=== PATIENT | male | born 1975 | race Caucasian/White ===

== ENCOUNTER 2024-03-15 04:14 | Emergency (ER) | payer BC, MEDICAID ==
[~2024-03-15] VITALS: Ht 177.8 cm; Wt 85.0 kg
[2024-03-15 04:16] VITALS: TEMP 98.6
[2024-03-15 04:45] VITALS: PULSE 110; RESP 16; O2SAT 91
[2024-03-15] MEDS: ALBUTEROL (0.083%) 2.5MG/3ML NEB HHN STA (04:45)
[2024-03-15] MEDS: IPRATROPIUM BROMIDE (0.02%) 0.5MG/2.5ML NEB HHN STA (04:45)
[2024-03-15 04:54] LABS: BG BASE EXCESS -2.8 mmol/L (-2.0-2.0); BG CARBOXYHEMOGLOBIN 1.1 % (0.5-1.5); BG HCO3 ACT 20.8 mmol/L (22.0-26.0); BG OXYGEN SATURATION 92.9 % (92.0-98.5); BG OXYHEMOGLOBIN 91.9 % (94.0-97.0); BG PH 7.417 (7.350-7.450); BG PO2 65.3 mmHg (75.0-100.0); BG SAMPLE SITE RIGHT RADIAL; BG TOTAL HEMOGLOBIN 14.9 g/dL (12.0-18.0); BG VENT MODE ROOM AIR
[2024-03-15 05:43] LABS: CHLORIDE 104 mEq/L (98-107); POTASSIUM 3.2 mEq/L (3.5-5.1); SODIUM 138 mEq/L (136-145)
[2024-03-15 05:44] LABS: CARBON DIOXIDE 25 mEq/L (21-32)
[2024-03-15 05:45] LABS: CALCIUM 9.4 mg/dL (8.7-10.4)
[2024-03-15 05:48] LABS: BASOPHILS % 0.2 % (0.0-2.0); EOSINOPHILS % 0.9 % (0.0-5.0); HEMATOCRIT. 41.1 % (42.0-52.0); LYMPHOCYTES % 15.6 % (20.0-50.0); MEAN CORPUSCULAR HEMOGLOBIN 32.4 pg (28.0-32.0); MEAN CORPUSCULAR HGB CONC 34.2 g/dL (31.0-37.0); MEAN CORPUSCULAR VOLUME 94.7 fL (80.0-94.0); MEAN PLATELET VOLUME 8.2 fl (7.4-10.4); MONOCYTES % 6.1 % (2.0-8.0); NEUTROPHILS % 77.2 % (40.0-76.0); PLATELET 292 x1000/uL (130-400); RED BLOOD CELL COUNT 4.34 mill/uL (4.7-6.1); RED CELL DISTRIBUTION WIDTH 13.9 % (11.6-14.6); WHITE BLOOD COUNT 15.3 x1000/uL (4.5-11.0)
[2024-03-15 05:49] LABS: CREATININE 0.8 mg/dL (0.6-1.3); GLUCOSE 142 mg/dL (70-105)
[2024-03-15 05:50] LABS: UREA NITROGEN BLOOD 12 mg/dL (9-23)
[2024-03-15 05:51] LABS: ALANINE AMINOTRANSFERASE 39 IU/L (10-49); ALBUMIN 4.5 g/dL (3.2-4.8); ASPARTATE AMINOTRANSFERASE 40 IU/L (<34)
[2024-03-15 05:52] LABS: BILIRUBIN TOTAL 0.6 mg/dL (0.1-1.0); PROTEIN TOTAL 7.6 g/dL (6.0-8.3)
[2024-03-15 05:59] LABS: ETHANOL BLOOD < 10 mg/dL (<10); TROPONIN I HIGH SENSITIVITY < 4 ng/L (3.0-53)
[2024-03-15] MEDS: METHYLPREDNISOLONE SOD SUCC 125MG/2ML (ACT-O-VIAL) IV STA (06:00)
[2024-03-15] MEDS: MAGNESIUM 2 G PREMIX 50 ML IV ONE (06:00)
[2024-03-15] MEDS ORDERED: P50 PO (06:56)
[2024-03-15] MEDS ORDERED: ALBU6.7H15 INH (06:56)
[2024-03-15 07:48] VITALS: BP 115/85; PULSE 89; RESP 16
== END 2024-03-15 07:45 | disposition home or self-care (01) ==
LOC: ER 04:30
DX: J45.901 Unspecified asthma with (acute) exacerbation (principal); F17.200 Nicotine dependence, unspecified, uncomplicated
CPT/HCPCS: 80053; 80320; 83880; 85025; 84484; 36415; 71045; 82805; 82375; 93005; 96365; 96375; 99285; 36600; J3475; J2919; Z7610; G0480

== ENCOUNTER 2024-04-09 19:15 | Emergency (ER) | payer BC ==
[~2024-04-09] VITALS: Ht 177.8 cm; Wt 84.0 kg
[~2024-04-09 19:15] MED LIST: ALBU6.7H15 INH; P50 PO
[2024-04-09 19:21] VITALS: O2SAT 98
[2024-04-09] MEDS ORDERED: ALBU6.7H15 INH (19:24)
[2024-04-09 19:28] VITALS: BP 136/95; PULSE 94; RESP 15; TEMP 98.1
== END 2024-04-09 19:34 | disposition home or self-care (01) ==
LOC: ER 19:15
DX: R68.89 Other general symptoms and signs (principal); Z76.0 Encounter for issue of repeat prescription
CPT/HCPCS: 99281; 99283